=== PATIENT | male | born 1950 | race Caucasian/White ===

== ENCOUNTER 2022-06-02 12:25 | Outpatient (CLI) | payer MEDICARE, OTHER | END 2022-06-02 12:26 | disposition home or self-care (01) | LOC: NM 12:25 | PROVIDERS: ATTEND Internal Medicine Endocrinology, Diabetes & Metabolism | DX: C73 Malignant neoplasm of thyroid gland (principal) | CPT/HCPCS: 79005; A9517 ×2 ==